=== PATIENT | male | born 1995 | race African-American/Black ===

== ENCOUNTER 2019-12-31 14:29 | Emergency (ER) | payer SELFPAY ==
[2019-12-31] MEDS ORDERED: Ketorolac Tromethamine 30 MG/ML VIAL ONE (15:02)
--- NOTE | 2019-12-31 15:55 | RAD ---
RIGHT SHOULDER THREE VIEW: 12/31/19 HISTORY: Pain. COMPARISON: None. FINDINGS: No acute displaced fracture or malalignment. Acromioclavicular joint alignment is normal. Ribs are in tact. The visualized portions of the right lung is clear. IMPRESSION: No acute osseous abnormality. POS: HOME
--- NOTE | 2019-12-31 15:55 | RAD ---
CHEST TWO VIEW: 12/31/19 HISTORY: Shoulder pain. COMPARISON: None. FINDINGS: The lungs are clear. No pneumothorax. No effusion. The cardiac silhouette and mediastinal contours ar e within normal limits. No acute osseous abnormality. IMPRESSION: No acute thoracic abnormality. POS: HOME
== END 2019-12-31 16:52 | disposition home or self-care (01) ==
LOC: ERS 14:29
DX: M25.511 Pain in right shoulder (principal); R07.89 Other chest pain; Z87.891 Personal history of nicotine dependence
CPT/HCPCS: 71046; 96372; J1885

== ENCOUNTER 2020-03-15 12:59 | Emergency (ER) | payer SELFPAY ==
[2020-03-15] MEDS ORDERED: Proparacaine 0.5% Opth 15 ML BOT ONE (13:39)
[2020-03-15] MEDS ORDERED: Fluorescein Opthalmic Strip ONE (13:39)
== END 2020-03-15 14:20 | disposition home or self-care (01) ==
LOC: ERS 12:59
DX: H10.9 Unspecified conjunctivitis (principal); Z87.891 Personal history of nicotine dependence
CPT/HCPCS: 99283